=== PATIENT | male | born 1970 | race Asian ===

== ENCOUNTER 2018-01-03 06:09 | Day surgery (SDC) | END 2018-01-03 09:35 | disposition home or self-care (01) ==

== ENCOUNTER 2018-12-03 07:20 | Day surgery (SDC) | payer OTHER ==
[~2018-12-03] VITALS: Ht 160 cm; Wt 47.7 kg
[~2018-12-03 07:20] MED LIST: OMEPRAZOLE
[2018-12-03 10:07] VITALS: Ht 160 cm; Wt 47.7 kg
[2018-12-03 10:30] VITALS: BP 106/65; PULSE 55; RESP 20
[2018-12-03] MEDS ORDERED: FENTAnyl 50 MCG/ML VIAL ONE (10:48)
[2018-12-03] MEDS ORDERED: MIDAZOLAM 1 MG/ML 2 ML INJ ONE ×2 (10:48)
[2018-12-03 11:15] VITALS: BP 94/58; RESP 20
== END 2018-12-03 16:38 | disposition home or self-care (01) ==
LOC: GIL 07:20
PROVIDERS: ATTEND Internal Medicine Gastroenterology
DX: R19.4 Change in bowel habit (principal); K64.8 Other hemorrhoids; K64.4 Residual hemorrhoidal skin tags
CPT/HCPCS: 45378; J2250; J3010